=== PATIENT | male | born 1955 | race Caucasian/White ===

== ENCOUNTER → 2016-11-12 | Outpatient (CLI) | payer BC ==
[~2016-11-12] MED LIST: ACET-1256 PO; ASPI81TA28 PO; COLE1TAB PO; DOXA1TAB88 PO; EPP3/2 IM; GADAVIST IV PRN; LISI1TAB3 PO; LISI5TAB3 PO; METO-217 PO; METO50TA7 PO; PANT40TA PO
--- NOTE | 2016-11-12 09:55 | DIAGNOSTIC IMAGING REPORT ---
ABDOMINAL MRI WITH AND WITHOUT INTRAVENOUS CONTRAST HISTORY: Follow-up PANCREATIC CYST TECHNIQUE: Multiplanar multisequence MRI of the abdomen was performed both before and after the intravenous administration of contrast. COMPARISON STUDY: Abdominal MRI 11/27/2015 and 06/01/2015. Abdominal ultrasound 04/04/2015. FINDINGS: There are a few scattered T2 hyperintense nonenhancing lesions within the liver with the largest measuring 8 mm. These are consistent with cysts. The gallbladder is surgically absent. The spleen, kidneys, and adrenal glands are unremarkable. There is no abdominal lymphadenopathy. The main pancreatic duct appears be normal in course and caliber. There are no enhancing pancreatic lesions. There are multiple cystic foci seen within the pancreatic head and neck. The largest cystic structure may be multiloculated and measures up to 1.5 cm. This is best seen on coronal Fiesta sequence image 14 of 32. This appears to be stable when measured in the craniocaudal dimension on this study and was likely under estimated on the prior study. There is also a stable 6 mm solitary cystic focus within the pancreatic neck which may connect to the main pancreatic duct. This is best seen on image 19 of 28 of the T2 sequences. There is also a 7 mm cystic focus at the uncinate process of the pancreas. There are few small cystic foci at the tail the pancreas with the largest measuring 4 mm. These also remain unchanged. IMPRESSION: Multiple cystic foci seen within the head and neck of the pancreas. A few of these may connect to the main pancreatic duct. 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 However, the dominant lesion demonstrates a multiloculated appearance and could also represent a serous cystadenoma. Endoscopic ultrasound or continued follow-up is recommended to ensure stability. These lesions are difficult to fully characterize due to their small size. No definite enhancing pancreatic masses. Electronically signed by: Connor Cherry M.D. 11/12/2016 9:53 AM Dictated Date/Time: 11/12/2016 9:38 AM
== END | disposition home or self-care (01) ==
LOC: C.MRIBC 08:29
PROVIDERS: ATTEND Internal Medicine Gastroenterology
DX: K86.2 Cyst of pancreas (principal)

== ENCOUNTER 2016-12-27 09:49 | Day surgery (SDC) | payer BC ==
[2016-12-04 14:06] VITALS: BMI 22.0
[~2016-12-27] VITALS: Ht 175.3 cm; Wt 67.3 kg
[~2016-12-27 09:49] MED LIST changes: -GADAVIST IV PRN; +LACTATED RINGER'S 1000ML 1,000 ML IV SCH; -LISI5TAB3 PO; -METO50TA7 PO; -PANT40TA PO
[2016-12-27] MEDS ORDERED: PANT40TA PO (10:21)
[2016-12-27 10:26] VITALS: BP 145/82; PULSE 75; TEMP 36.9; O2SAT 98; Ht 175.3 cm; Wt 67.3 kg
[2016-12-27] MEDS ORDERED: SODIUM CHLORIDE 0.9% 500ML 500 ML IV ONE (10:59)
[2016-12-27] MEDS ORDERED: MIDAZOLAM HCL 1 MG/ML 2ML VIAL ONE (11:05)
[2016-12-27] MEDS ORDERED: ONDANSETRON INJ 2 MG/ML 2 ML VIAL ONE (11:05)
[2016-12-27] MEDS ORDERED: LIDOCAINE HCL 2% 2 ML VIAL (20MG/ML) ONE (11:05)
[2016-12-27] MEDS ORDERED: DEXAMETHASONE SOD INJ 4 MG/ML VIAL ONE (11:05)
[2016-12-27] MEDS ORDERED: PROPOFOL IV EMULSION 10 MG/ML 20 ML VIAL IV ONE (11:05)
[2016-12-27] MEDS ORDERED: FENTANYL CITRATE INJ 50 MCG/1 ML 2 ML VIAL ONE (11:05)
[2016-12-27] MEDS ORDERED: ROCURONIUM BROMIDE 10 MG/ML 5 ML VIAL ONE (11:05)
--- NOTE | 2016-12-27 11:26 | Endo History and Physical ---
History & Physical Date of Service: December 27, 2016. Chief Complaint: Referring Physician: History of Present Illness pancreatic cyst- enlarging head/neck of panc Past Medical History Male Genitourinary Prob., Hypertension, Other Past Surgical History Hx Cardiac Surgery: Yes (HEART CATH) Hx Abdominal Surgery: Yes (LAP [facility]) Hx Post-Op Nausea and Vomiting: No Hx Cancer Surgery: No Hx Thoracic Surgery: No Hx Orthopedic: No Hx Urinary Tract Surgery: No Social History Smoking Status: Never Smoker Hx Substance Use: No Hx Alcohol Use: Yes (RARELY) Allergies Coded Allergies: Bee Venom (Verified Allergy, Severe, SWELLING OF THROAT, 12/27/16) NO KNOWN DRUG ALLERGIES (Verified Allergy, Mild, NONE, 12/27/16) Current Medications Reported Home Medications Medications Dose Route/Sig Max Daily Dose Days Date Category Dose Instructions Protonix (Pantoprazole Sodium) 40 Mg Tab 40 Mg PO DAILY 12/27/16 Reported Colestid (Colestipol Hcl) 1 Gm Tab 1 Gm PO BID PRN 12/04/16 Reported Tylenol (Acetaminophen) 500 Mg Tab 500 Mg PO Q6H PRN 12/04/16 Reported Epipen (Epinephrine) 0.3 Mg/0.3 Ml Inj 0.3 Mg IM UD 12/04/16 Reported Toprol Xl (Metoprolol Succinate) 50 Mg Tabcr 50 Mg PO QPM 12/04/16 Reported Zestril (Lisinopril) 30 Mg Tab 30 Mg PO QAM 12/04/16 Reported Doxazosin Mesylate 1 Mg Tab 2 Mg PO DAILY PRN 04/14/15 Reported RARELY TAKES Aspirin Ec (Aspirin) 81 Mg Tab 81 Mg PO QAM 04/14/15 Reported Vital Signs Weight (Kilograms): 67.27 Height (Feet): 5 Height (Inches): 9 Date Time Temp Pulse Resp B/P Pulse Ox O2 Delivery O2 Flow Rate FiO2 12/27/16 10:26 36.9 75 20 145/82 98 Room Air Physical Exam AAO x3 Nl s1s2 Lungs CTA Abd soft NT ND + BS - CCE Assessment and Plan EUS possible FNA natali
[2016-12-27] MEDS ORDERED: FENTANYL CITRATE INJ 50 MCG/1 ML 2 ML VIAL IV PRN (11:45)
[2016-12-27] MEDS ORDERED: ONDANSETRON INJ 2 MG/ML 2 ML VIAL IV PRN (11:45)
[2016-12-27] MEDS ORDERED: ATROPINE SULFATE 0.1 MG/ML 5ML SYR IV PRN (11:45)
[2016-12-27] MEDS ORDERED: EpHEDrine SULFATE INJ 50 MG/ML AMP ONE (12:04)
[2016-12-27] MEDS ORDERED: CIPROFLOXACIN 400MG / 200ML D5W ONE (12:43)
[2016-12-27] MEDS ORDERED: NEOSTIGMINE METHYLSULFATE 5 MG/5 ML SYR ONE (13:21)
[2016-12-27] MEDS ORDERED: GLYCOPYRROLATE INJ 0.2 MG/ML VIAL ONE (13:21)
--- NOTE | 2016-12-27 13:21 | Discharge Instructions ---
Endoscopy Patient Instructions Date / Procedure(s) Performed December 27, 2016. Allergy Information Coded Allergies: Bee Venom (Verified Allergy, Severe, SWELLING OF THROAT, 12/27/16) NO KNOWN DRUG ALLERGIES (Verified Allergy, Mild, NONE, 12/27/16) Discharge Date / Findings December 27, 2016. EUS with FNA for cyst in pancreatic neck region received Cipro 400mg IV Medication Instructions Restart Stopped Medication(s): Reported Home Medications Medications Dose Route/Sig Max Daily Dose Days Date Category Dose Instructions Protonix (Pantoprazole Sodium) 40 Mg Tab 40 Mg PO DAILY 12/27/16 Reported Colestid (Colestipol Hcl) 1 Gm Tab 1 Gm PO BID PRN 12/04/16 Reported Tylenol (Acetaminophen) 500 Mg Tab 500 Mg PO Q6H PRN 12/04/16 Reported Epipen (Epinephrine) 0.3 Mg/0.3 Ml Inj 0.3 Mg IM UD 12/04/16 Reported Toprol Xl (Metoprolol Succinate) 50 Mg Tabcr 50 Mg PO QPM 12/04/16 Reported Zestril (Lisinopril) 30 Mg Tab 30 Mg PO QAM 12/04/16 Reported Doxazosin Mesylate 1 Mg Tab 2 Mg PO DAILY PRN 04/14/15 Reported RARELY TAKES Aspirin Ec (Aspirin) 81 Mg Tab 81 Mg PO QAM 04/14/15 Reported Cipro 500mg twice daily x 5 days Reported Home Medications Medications Dose Route/Sig Max Daily Dose Days Date Category Dose Instructions Protonix (Pantoprazole Sodium) 40 Mg Tab 40 Mg PO DAILY 12/27/16 Reported Colestid (Colestipol Hcl) 1 Gm Tab 1 Gm PO BID PRN 12/04/16 Reported Tylenol (Acetaminophen) 500 Mg Tab 500 Mg PO Q6H PRN 12/04/16 Reported Epipen (Epinephrine) 0.3 Mg/0.3 Ml Inj 0.3 Mg IM UD 12/04/16 Reported Toprol Xl (Metoprolol Succinate) 50 Mg Tabcr 50 Mg PO QPM 12/04/16 Reported Zestril (Lisinopril) 30 Mg Tab 30 Mg PO QAM 12/04/16 Reported Doxazosin Mesylate 1 Mg Tab 2 Mg PO DAILY PRN 04/14/15 Reported RARELY TAKES Aspirin Ec (Aspirin) 81 Mg Tab 81 Mg PO QAM 04/14/15 Reported Cipro 500mg BID x 5 days Provider Instructions Activity Restrictions - No exercising or heavy lifting for 24 hours. - Do not drink alcohol the day of the procedure. - Do not drive a car or operate machinery until the day after the procedure. - Do not make any important decisions or sign important papers in 24 hours after the procedure. Following Day: - Return to full activity which may include returning to work/school. Diet Start your diet with liquids and light foods (jello, soup, juice, toast). Then eat your usual diet if not nauseated. Treatment For Common After Affects For mild abdominal pain, bloating, or excessive gas: - Rest - Eat lightly - Lie on right side Follow-Up Information Follow-up with as scheduled Anesthesia Information What You Should Know You have had a procedure that required some medicine to reduce anxiety and discomfort. This treatment is called moderate sedation. After receiving the treatment, you may be sleepy, but you will be able to breathe on your own. The effects of the treatment may last for several hours. Follow these instructions along with Activity/Diet recommendations noted above: * Do NOT do anything where dizziness or clumsiness would be dangerous. * Rest quietly at home today, then you can be up and about tomorrow. * Have a responsible person stay with you the rest of today. * You may have had an I.V. today. If so, you may take the dressing off later today. Recommendations Call your doctor if: * Trouble breathing * Continuous vomiting for more than 24 hours * Temperature above 101 degrees * Severe abdominal pain or bloating * Pain not relieved by pain medicine ordered * There is increased drainage or redness from any incision * A large amount of rectal bleeding greater than 2-3 tablespoons. (If you had a polyp/s removed or have hemorrhoids, a small amount of blood - from the rectum is to be expected.) * You have any unanswered questions or concerns. IN THE EVENT OF A SERIOUS EMERGENCY, GO TO THE NEAREST EMERGENCY ROOM Your discharge instructions were prepared by provider Miles Hart. Patient Instructions Signature Page Connor Tomas Patient (or Guardian) Signature/Date: I have read and understand the instructions given to me by my caregivers. Caregiver/RN/Doctor Signature/Date: The above-named patient and/or guardian has received patient instructions on this date. + Original Patient Signature Page (only) stays with chart. Please make copy for patient.
--- NOTE | 2016-12-27 13:48 | GI REPORT ---
Procedure Date: 12/27/2016 11:33 AM Procedure: Upper EUS Indications: Pancreatic cyst on MRI Medicines: General Anesthesia, Cipro 400 mg IV Complications: No immediate complications. Estimated blood loss: Minimal. Estimated Blood Loss: Estimated blood loss was minimal. Procedure: Pre-Anesthesia Assessment: - Prior to the procedure, a History and Physical was performed, and patient medications and allergies were reviewed. The patient's tolerance of previous anesthesia was also reviewed. The risks and benefits of the procedure and the sedation options and risks were discussed with the patient. All questions were answered, and informed consent was obtained. Prior Anticoagulants: The patient has taken no previous anticoagulant or antiplatelet agents. ASA Grade Assessment: II - A patient with mild systemic disease. After reviewing the risks and benefits, the patient was deemed in satisfactory condition to undergo the procedure. After obtaining informed consent, the endoscope was passed under direct vision. Throughout the procedure, the patient's blood pressure, pulse, and oxygen saturations were monitored continuously. The Endosonoscope was introduced through the mouth, and advanced to the second part of duodenum. The Endosonoscope was introduced through the mouth, and advanced to the second part of duodenum. The upper EUS was accomplished without difficulty. The patient tolerated the procedure well. Findings: Endoscopic Finding : The examined esophagus was normal. The entire examined stomach was normal. The ampulla and examined duodenum were normal. Endosonographic Finding : The esophagus, stomach, duodenum, esophagus, stomach and duodenum and adjacent structures were visualized endosonographically. There was no sign of significant endosonographic abnormality in the esophagus. No pathologic lymphadenopathy was identified. Endosonographic images of the stomach were unremarkable. No pathologic lymphadenopathy and no masses were identified. There was no sign of significant endosonographic abnormality in the examined duodenum. No pathologic lymphadenopathy was identified. There was no sign of significant endosonographic abnormality in the ampulla. No pathologic lymphadenopathy was identified. There was no sign of significant endosonographic abnormality in the liver. Homogeneous parenchyma was identified. There was no sign of significant endosonographic abnormality in the common bile duct. The maximum diameter of the duct was 5 mm. No masses were identified. A hypoechoic lesion suggestive of a cyst was identified in the pancreatic neck. It is not in obvious communication with the pancreatic duct. The lesion measured 11 mm by 19 mm in maximal cross-sectional diameter. There were a few compartments without septae. The outer wall of the lesion was not seen. There was no internal debris within the fluid-filled cavity. Diagnostic needle aspiration for fluid was performed. Color Doppler imaging was utilized prior to needle puncture to confirm a lack of significant vascular structures within the needle path. Two passes were made with the 22 gauge needle using a transduodenal approach. No stylet was used. The amount of fluid collected was 0.5 mL. The fluid was serous and bilious. Sample(s) were sent for amylase concentration, cytology and CEA. Verification of patient identification for the specimen was done by the physician and cdl service technician using the patient's name and medical record number. A hypoechoic lesion suggestive of a cyst was identified in the pancreatic body. It is not in obvious communication with the pancreatic duct. The lesion measured 8 mm in maximal cross-sectional diameter. There was a single compartment without septae. The outer wall of the lesion was not seen. There was no internal debris within the fluid-filled cavity. No lymphadenopathy seen. Impression: - Normal esophagus. - Normal stomach. - Normal ampulla and examined duodenum. - There was no sign of significant pathology in the esophagus. - Endosonographic images of the stomach were unremarkable. - There was no sign of significant pathology in the examined duodenum. - There was no sign of significant pathology in the ampulla. - There was no evidence of significant pathology in the liver. - There was no sign of significant pathology in the common bile duct. - A cystic lesion was seen in the pancreatic neck. Fine needle aspiration for fluid performed. - A cystic lesion was seen in the pancreatic body. Recommendation: - Discharge patient to home (ambulatory). - Advance diet as tolerated. - Cipro (ciprofloxacin) 500 mg PO BID for 5 days. - Return to GI clinic as previously scheduled. MD Miles Santiago MD 12/27/2016 1:48:09 PM This report has been signed electronically. Note Initiated On: 12/27/2016 11:33 AM I attest to the content of the Intraoperative Record and orders documented therein, exceptions below
[2016-12-27 14:00] VITALS: BP 156/76; PULSE 62; TEMP 36.7; O2SAT 98
[2016-12-27 14:30] VITALS: BP 134/71; PULSE 67; TEMP 36.6; O2SAT 96
--- NOTE | 2016-12-27 14:47 | Anesthesiology Progress Note ---
Anesthesia Post Op Note Date & Time December 27, 2016 at 14:47 Vital Signs Pain Intensity: 0 Vital Signs Past 12 Hours Date Time Temp Pulse Resp B/P Pulse Ox O2 Delivery O2 Flow Rate FiO2 12/27/16 14:00 36.7 62 16 156/76 98 Room Air 0 12/27/16 13:55 72 20 153/75 98 Room Air 12/27/16 13:45 63 17 157/77 99 Room Air 12/27/16 13:35 61 19 156/81 100 Mask 10 12/27/16 13:25 64 17 149/76 100 Mask 10 12/27/16 13:15 36.0 66 14 144/77 100 Mask 10 12/27/16 10:26 36.9 75 20 145/82 98 Room Air Notes Mental Status: alert / awake / arousable, participated in evaluation Pt Amnestic to Procedure: Yes Nausea / Vomiting: adequately controlled Pain: adequately controlled Airway Patency, RR, SpO2: stable & adequate BP & HR: stable & adequate Hydration State: stable & adequate Anesthetic Complications: no major complications apparent
[2016-12-27 15:00] VITALS: BP 138/74; PULSE 67; TEMP 36.7; O2SAT 96
== END 2016-12-27 15:05 | disposition home or self-care (01) ==
LOC: C.ACU 09:49
PROVIDERS: ATTEND Internal Medicine Gastroenterology
DX: K86.2 Cyst of pancreas (principal); I10 Essential (primary) hypertension; Z90.49 Acquired absence of other specified parts of digestive tract; Z79.82 Long term (current) use of aspirin

== ENCOUNTER → 2017-10-30 | Outpatient (CLI) | payer OTHER ==
[~2017-10-30] MED LIST changes: -LACTATED RINGER'S 1000ML 1,000 ML IV SCH; +PANT40TA PO
== END | disposition home or self-care (01) ==
LOC: C.PATHSPEC 18:45
PROVIDERS: ATTEND Plastic Surgery
DX: D36.7 Benign neoplasm of other specified sites (principal); L90.5 Scar conditions and fibrosis of skin

== ENCOUNTER → 2017-12-17 | Outpatient (CLI) | payer OTHER ==
[2017-12-17 15:10] LABS: BLOOD UREA NITROGEN 29 mg/dl (7-18)
== END | disposition home or self-care (01) ==
LOC: C.LAB 13:30
PROVIDERS: ATTEND Internal Medicine Gastroenterology
DX: D13.6 Benign neoplasm of pancreas (principal)

== ENCOUNTER → 2017-12-18 | Outpatient (CLI) | payer OTHER ==
--- NOTE | 2017-12-18 10:25 | DIAGNOSTIC IMAGING REPORT ---
ABDOMINAL MRI WITH AND WITHOUT INTRAVENOUS CONTRAST HISTORY: Follow-up PANCREATIC CYST TECHNIQUE: Multiplanar multisequence MRI of the abdomen was performed both before and after the intravenous administration of contrast. COMPARISON STUDY: Abdominal MRI 11/12/2016, 11/27/2015 and 06/01/2015. FINDINGS: There are a few scattered T2 hyperintense nonenhancing lesions within the liver with the largest measuring 8 mm. These are consistent with cysts. The gallbladder is surgically absent. The spleen, kidneys, and adrenal glands are unremarkable. There is no abdominal lymphadenopathy. The main pancreatic duct appears be normal in course and caliber. There are no enhancing pancreatic lesions. There are multiple cystic foci seen within the pancreatic head and neck. The largest cystic structure may be multiloculated and measures up to 1.5 cm. There is also a stable 6 mm solitary cystic focus within the pancreatic neck which may connect to the main pancreatic duct. There is also a 7 mm cystic focus at the uncinate process of the pancreas. There are few small cystic foci at the tail the pancreas with the largest measuring 4 mm. These cystic lesions are not significantly changed. IMPRESSION: Multiple cystic foci seen within the the pancreas most pronounced at the head/neck. These are not significantly changed compared to the prior study. A few of these may connect to the main pancreatic duct. 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 However, the dominant lesion demonstrates a multiloculated appearance and could also represent a serous cystadenoma. Endoscopic ultrasound or continued follow-up is recommended to ensure stability. These lesions are difficult to fully characterize due to their small size. No definite enhancing pancreatic masses. Electronically signed by: Connor Cherry M.D. 12/18/2017 10:23 AM Dictated Date/Time: 12/18/2017 10:19 AM
== END | disposition home or self-care (01) ==
LOC: C.MRI 08:27
PROVIDERS: ATTEND Internal Medicine Gastroenterology
DX: D13.6 Benign neoplasm of pancreas (principal); K86.2 Cyst of pancreas

== ENCOUNTER 2023-11-21 13:13 | Inpatient (IN) ==
[2023-11-21 13:55] LABS: Basophils # (auto) 0.06 K/uL (0.00-0.20); Basophils % (auto) 0.7 %; Eosinophils % (auto) 1.2 %; Hematocrit (blood only) 43.9 % (42.0-52.0); Hemoglobin 14.7 g/dl (14.0-18.0); Immature Granulocytes # (auto) 0.02 K/uL (0.01-0.20); Immature Granulocytes % (auto) 0.2 %; Lymphocytes # (auto) 1.47 K/uL (1.20-3.40); Lymphocytes % (auto) 17.4 %; Mean Corpuscular Hemoglobin 31.3 pg (25.0-34.0); Mean Corpuscular Hgb Conc 33.5 g/dL (32.0-36.0); Mean Corpuscular Volume 93.4 fL (80.0-100.0); Mean Platelet Volume 8.9 fL (9.4-12.4); Monocytes % (auto) 10.7 %; Neutrophils # (auto) 5.88 K/uL (1.40-6.50); Neutrophils % (auto) 69.8 %; Platelet Count 306 K/uL (130-400); RDW Coefficient of Variation 12.5 % (11.5-14.5); RDW Standard Deviation 43.2 fL (36.4-46.3); White Blood Count 8.43 K/ul (4.8-10.8)
[2023-11-21 14:18] LABS: Albumin Globulin Ratio 1.7 (0.9-2); Albumin Level 4.7 gm/dl (3.4-5.0); BUN Creatinine Ratio 18.6 (10-20); Bilirubin,Total 0.5 mg/dl (0.2-1.0); Calcium 9.9 mg/dl (8.6-10.3); Creatinine Clr Calc Pharmacy 61.6 ml/min; Est GFR (African American) 86.5 ml/min; Est GFR (Non-African American) 74.6 ml/min; Globulin 2.7 gm/dl (2.5-4.0); Potassium 3.9 mmol/L (3.5-5.1); Total Protein 7.4 gm/dl (6.0-8.3)
--- NOTE | 2023-11-21 14:22 | XRay Report ---
XR chest 1V portable CLINICAL HISTORY: Chest pain, nonspecific TECHNIQUE: Single frontal radiograph of the chest was obtained. Comparison: Comparison is made to chest radiograph 08/06/2022 FINDINGS: No lines and tubes are seen. The cardiomediastinal silhouette is normal. The lungs are clear. No evid ence of pleural effusion or pneumothorax. IMPRESSION: No acute chest disease. ACT 112: Negative or not required by law. Electronically signed by: Michael De León M.D. 11/21/2023 2:20 PM
[2023-11-21 14:29] LABS: Troponin I High Sensitivity 149.6 pg/ml (0-20)
[2023-11-21 14:31] LABS: Partial Thromboplastin Ratio 0.9; Partial Thromboplastin Time 25 Seconds (21-31); Prothrombin Time 10.8 Seconds (9.0-12.0)
[2023-11-21] MEDS: ASPIRIN 81 MG CHEW PO STA (14:57)
--- NOTE | 2023-11-21 15:09 | History & Physical Report ---
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 Hilario Berry Patient had a 75% mid circumflex stenosis; s/p 1 stent Percent mid LAD, and severe disease in the small apical LAD Trend troponin q6h Echocardiogram ordered, pending Aspirin 81 mg daily Atorvastatin 80 mg daily Brilinta 90 mg BID Metoprolol succinate 50mg QAM --> metoprolol tartrate 25 mg BID Acetaminophen as needed for pain Nitroglycerin SL as needed for chest pain A.m. CBC, BMP, A1c, fasting lipid panel, mag (2) High blood pressure: Plan: Lisinopril 30mg QPM --> QAM Plan Disposition: Admit to PCU telemetry Full code AHA diet VTE PPx: SCDs History of Present Illness Chief Complaint: Chest pain Primary Care Provider: Daina Medina MD Connor is a 67-year-old male with PMH of gastric ulcers, chronic cholecystitis, HTN, chronic venous insufficiency, and BPH. He presented for burning, substernal chest pain that first began while doing yard work on Thursday 11/16. Heart alert in the ED; taken to the cardiac car barn laborer with Dr. Berry. Patient reports that the substernal chest pain waxes and wanes, and initially thought that it was acid reflux. He has been taking antacids at home, but they have not been working. Patient also thought that he potentially strained his muscles when doing yard work on Friday history of chest pain with exertion. Patient reports that he has normally been very healthy, and is able to walk extensive distances without any pain he does report that he was restless in the evening of 11/19, and that the pain did keep him up. No radiation to the back or down the arms. No history of MS, CVA, T2DM, bleeding, or allergies to sedation. The pain is not worse with eating, he does endorse that it is slightly worse with movement. Patient is hypertensive at 158/86 at time of admission; vitals otherwise stable. ED course: Aspirin 324 mg ROS: following stent Patient denies fever in the last week, chills, night sweats, dizziness/lightheadedness, headache, changes in vision, chest pain at present, left shoulder pain, chest palpitations, cough, SOB, abdominal pain, N/V/D, change in urinary/bowel habits, or numbness or tingling in the arms or legs. Allergies Allergy/AdvReac Type Severity Reaction Status Date / Time bee venom protein (honey bee) Allergy Severe SWELLING Verified 11/21/23 15:25 OF THROAT Home Medications Medication Instructions Recorded Confirmed Type acetaminophen 500 mg tablet 500 mg PO Q6H PRN Pain 09/18/23 11/21/23 History (Tylenol Extra Strength) aspirin 81 mg tablet,delayed 81 mg PO DAILY 09/18/23 11/21/23 History release colestipol 1 gram tablet 1 g PO HS 09/18/23 11/21/23 History doxazosin 2 mg tablet 2 mg PO DAILY PRN BPH 09/18/23 11/21/23 History epinephrine 0.3 mg/0.3 mL 0.3 mg IM Q4H PRN Severe allergies 09/18/23 11/21/23 History injection, auto-injector (EpiPen) lisinopril 30 mg tablet 30 mg PO QPM 09/18/23 11/21/23 History metoprolol succinate 50 mg 50 mg PO QPM 09/18/23 11/21/23 History tablet,extended release 24 hr colestipol 1 gram tablet 1 g PO DAILY PRN Diarrhea 11/21/23 11/21/23 History Past Med/Surg History Medical History High blood pressure Skin cancer Social History Smoking Status: Former smoker Hx Alcohol Use: Yes Alcohol type: wine Hx Substance Use: No Preferred 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 Beliefs That Will Affect Care: None Current Living Situation: Spouse Other Information That Helps Us Care for You: No Feels Safe at Home: Yes Safety Concerns: Feels Safe At This Time Assistive Devices: Glasses Review of Systems Review of Systems: See HPI above Physical Exam Physical Exam: General: no acute distress; pleasant affect; non-toxic appearing; cooperative; 98% on RA HEENT: normocephalic, atraumatic; PERRLA; moist mucus membrane; vision and hearing grossly intact Neck: supple; no lymphadenopathy; trachea midline Skin: warm, dry without signs of tenting; no cyanosis; no rashes, bruising, lesions, or erythema noted CV: chest wall NTP; chest pain is not reproducible on palpation; RRR; S1/S2 normal; no murmurs/rubs/gallops; pulses intact and symmetric at radial, DP, and PT Lungs: no acute respiratory distress; symmetrical chest wall expansion; clear breath sounds across all lung [place] w/o adventitious sounds; no wheezing ABD: Soft, NTP; BS present; no rebound/guarding; no distention MSK: no tics or fasciculations; no edema noted in the LEs b/l, nonerythematous Neuro: A&Ox3; normal mood and affect; fluent speech; no focal deficits; sensation grossly intact in the LEs b/l Results & Data Results & Data Vital Signs (Past 12 Hours) Vital Signs Temp Pulse Pulse Resp BP BP Pulse Ox 11/21/23 15:00 71 19 158/86 H 96 11/21/23 13:55 11/21/23 13:55 11/21/23 13:55 11/21/23 13:20 37 C 89 18 167/88 H 97 O2 Del Method 11/21/23 15:00 Room Air 11/21/23 13:55 Room Air 11/21/23 13:55 Room Air 11/21/23 13:55 Room Air 11/21/23 13:20 Room Air Laboratory Results Abnormal lab results 11/21/23 11/21/23 Range/Units 13:35 15:05 MPV 8.9 L (9.4-12.4) fL [place] # (Auto) 0.90 H (0.11-0.59) K/uL Glucose 173 H (70-99(Fasting)) mg/dl Troponin I High Sens 149.6 H* 303.9 H* D (0-20) pg/ml Diagnostic Findings Chest X-Ray 11/21/23 13:28 XR chest 1V portable CLINICAL HISTORY: Chest pain, nonspecific TECHNIQUE: Single frontal radiograph of the chest was obtained. Comparison: Comparison is made to chest radiograph 08/06/2022 FINDINGS: No lines and tubes are seen. The cardiomediastinal silhouette is normal. The lungs are clear. No evidence of pleural effusion or pneumothorax. IMPRESSION: No acute chest disease. ACT 112: Negative or not required by law. Electronically signed by: Michael De León M.D. 11/21/2023 2:20 PM Code Status & VTE Plan Code Status Full code (discussed with patient at bedside; = POA) VTE Prophylaxis Plan VTE Prophylaxis will be ordered: Yes Supervising Physician Co-Signing Physician Notes Patient seen and examined, chart reviewed, case discussed with Connor Lo and I agree with the assessment and plan as above except as otherwise noted Labs and images reviewed Connor is a 67-year-old male with a past medical history of stomach ulcers, BPH, chronic venous insufficiency who presented with acute onset of burning substernal pain, was hypertensive on arrival to the ER, and was activated as a heart alert while in the ER. Previously with exertional ches tpain, however had 3 days of constant burning chest pain waxing and waning but genearlly constant and worsened with exertion. 2/10 whlie in the ER. Patient's baseline left bundle branch block however acute ischemic changes were seen with new discordant elevations in V3 >5mm and T wave inversions. Heart alert was called due to worsened chest pain which had progressed to persistent, EKG changes, and elevated troponin. Patient was taken urgently to the Ammonium Sulfate Operator. He received an RCA stent, and will be continued on aspirin/atorvastatin/lisinopril/metoprolol/Brilinta. PG Care Time/CCT Total # of Minutes Spent Total Time Spent with Patient: Total time spent is greater than 50% in coordination of care (as documented) at patient's floor/unit and/or counseling patient: [place] [address] INT INP/OBS CARE 2/55MIN Patient Type New Medical Decision Making Moderate Complexity Diagnoses NSTEMI (non-ST elevated myocardial infarction) I21.4 High blood pressure I10
--- NOTE | 2023-11-21 15:10 | Emergency Department Note ---
Impression & Plan ST elevation (STEMI) myocardial infarction ED Provider Note CHIEF COMPLAINT: Chest pain HPI: This is a 67-year-old male presenting for chest pain. Patient first notes that he was working in his yard lifting heavy things and noticed some chest pressure across his anterior chest into the shoulders about 4 days ago. He notes that this was expected after him working. And then he went to a restaurant where he ate kebabs which he thought was causing him GERD about 2 days ago. For the past 2 days however he has had a burning sensation to his chest. He thought he may have had a small food bolus. Otherwise he notes that he has no worsening pain with exertion, or position. He notes he takes a baby aspirin and metoprolol daily. ROS: See above HPI for pertinent positives & negatives. A total of 10 systems reviewed and were otherwise negative. PHYSICAL EXAMINATION: General: resting comfortably in no acute distress Head: Normocephalic and atraumatic Eyes: Normal inspection, extraocular muscles intact Ear, nose, throat: Normal external exam Neck: Normal range of motion Respiratory: lungs clear to auscultation bilaterally Cardiovascular: Regular rate/rhythm, no murmur GI: soft, nontender, no guarding or rebound Extremities: nontender, moves all extremities Neuro: The patient awake and alert, appropriately conversive, no focal deficits, symmetric faces Skin: Warm, dry, and intact MEDICAL DECISION MAKING: This is a 67-year-old male presenting for chest pain. Patient had blood work and EKG ordered at triage. I was alerted by the charge nurse that patient had elevated troponin into the 150s. I immediately went to see the patient. Reviewed his EKG which did reveal some T wave versions of the high lateral and inferior leads. I discussed patient's history with his bag repairer, Dr. Howard who reviewed the EKG as well. Dr. Howard recommended patient be taken to the Storage Specialist due to the EKG findings. I immediately called a STEMI alert at this time at 1457. -Patient received 4 baby aspirin chewable. -Patient given heparin bolus -Patient taken to Storage Specialist for patient current chest pain, EKG changes and possible STEMI -ECG independently interpreted by me with normal sinus rhythm, rate of 76, normal axis, normal TX, left axis deviation, normal QTc, ST elevation greater than 5 mm in V3, ST depression in leads V5, V6, II, III and aVF with subtle elevations in leads I and aVL -Labs reviewed from leukocytosis or anemia. Troponin was initially elevated at 150s, no transaminitis or electrolyte disturbances. Repeat troponin over 300. Differential diagnosis: ACS, PE, dissection ER treatment provided: See below Diagnostics interpreted by me: ECG: See above Cardiac Monitoring: An order was placed for continuous cardiac monitoring. The monitor shows a rate of 67 with sinus rhythm. Laboratory studies: As stated above and show below. Imaging studies: See below. 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: No Beliefs That Will Affect Care: None Current Living Situation: Spouse Other Information That Helps Us Care for You: No Feels Safe at Home: Yes Safety Concerns: Feels Safe At This Time Assistive Devices: Glasses Allergies Allergies Allergy/AdvReac Type Severity Reaction Status Date / Time bee venom protein (honey bee) Allergy Severe SWELLING Verified 11/21/23 15:25 OF THROAT Home Meds Home Medications Medication Instructions Recorded Confirmed acetaminophen 500 mg tablet 500 mg PO Q6H PRN Pain 09/18/23 11/21/23 (Tylenol Extra Strength) aspirin 81 mg tablet,delayed 81 mg PO DAILY 09/18/23 11/21/23 release colestipol 1 gram tablet 1 g PO HS 09/18/23 11/21/23 doxazosin 2 mg tablet 2 mg PO DAILY PRN BPH 09/18/23 11/21/23 epinephrine 0.3 mg/0.3 mL 0.3 mg IM Q4H PRN Severe allergies 09/18/23 11/21/23 injection, auto-injector (EpiPen) lisinopril 30 mg tablet 30 mg PO QPM 09/18/23 11/21/23 metoprolol succinate 50 mg 50 mg PO QPM 09/18/23 11/21/23 tablet,extended release 24 hr colestipol 1 gram tablet 1 g PO DAILY PRN Diarrhea 11/21/23 11/21/23 Results & Data (ED) Vital Signs Vital Signs - 24 hr 11/21/23 13:20 11/21/23 13:55 11/21/23 13:55 Temperature 37 C Temperature Source Temporal Artery Scan Pulse Rate 89 Pulse Rate [Apical] Pulse Rate from SpO2 Sensor Respiratory Rate 18 Respiratory Effort / Characteristics Non-Labored Spontaneous Respiratory Depth Normal Respiratory Pattern Regular Blood Pressure 167/88 H Blood Pressure [Right Arm] Blood Pressure Mean 114 Blood Pressure Mean [Right Arm] Blood Pressure Position Lying Pulse Oximetry 97 Oxygen Delivery Method Room Air Room Air Room Air Sepsis Recent Fever Within 48 Hours No Sepsis New/Unexplained Change in Mental Status No Sepsis Action Taken by Nursing No Action Required 11/21/23 13:55 11/21/23 15:00 11/21/23 15:13 Temperature Temperature Source Pulse Rate 82 Pulse Rate [Apical] 71 Pulse Rate from SpO2 Sensor 73 Respiratory Rate 19 14 Respiratory Effort / Characteristics Non-Labored Spontaneous Respiratory Depth Normal Respiratory Pattern Blood Pressure Blood Pressure [Right Arm] 158/86 H Blood Pressure Mean Blood Pressure Mean [Right Arm] 110 Blood Pressure Position Pulse Oximetry 96 100 Oxygen Delivery Method Room Air Room Air Sepsis Recent Fever Within 48 Hours Sepsis New/Unexplained Change in Mental Status Sepsis Action Taken by Nursing 11/21/23 15:15 11/21/23 15:18 11/21/23 15:18 Temperature Temperature Source Pulse Rate 75 81 Pulse Rate [Apical] Pulse Rate from SpO2 Sensor 77 80 Respiratory Rate 19 22 Respiratory Effort / Characteristics Respiratory Depth Respiratory Pattern Blood Pressure 146/75 H Blood Pressure [Right Arm] Blood Pressure Mean 113 Blood Pressure Mean [Right Arm] Blood Pressure Position Pulse Oximetry 100 100 Oxygen Delivery Method Sepsis Recent Fever Within 48 Hours Sepsis New/Unexplained Change in Mental Status Sepsis Action Taken by Nursing 11/21/23 15:26 11/21/23 15:26 Temperature Temperature Source Pulse Rate 77 Pulse Rate [Apical] Pulse Rate from SpO2 Sensor Respiratory Rate 13 Respiratory Effort / Characteristics Respiratory Depth Respiratory Pattern Blood Pressure 162/78 H Blood Pressure [Right Arm] Blood Pressure Mean 126 Blood Pressure Mean [Right Arm] Blood Pressure Position Pulse Oximetry Oxygen Delivery Method Sepsis Recent Fever Within 48 Hours Sepsis New/Unexplained Change in Mental Status Sepsis Action Taken by Nursing Laboratory Data 11/21/23 13:35 11/21/23 13:35 Lab Results 11/21/23 11/21/23 11/21/23 Range/Units 13:35 15:05 16:04 WBC 8.43 (4.8-10.8) K/ul RBC 4.70 (4.70-6.10) M/uL Hgb 14.7 (14.0-18.0) g/dl Hct 43.9 (42.0-52.0) % MCV 93.4 (80.0-100.0) fL MCH 31.3 (25.0-34.0) pg MCHC 33.5 (32.0-36.0) g/dL RDW Std Deviation 43.2 (36.4-46.3) fL RDW Coeff of Lito 12.5 (11.5-14.5) % Plt Count 306 (130-400) K/uL MPV 8.9 L (9.4-12.4) fL Immature Gran % (Auto) 0.2 % Neut % (Auto) 69.8 % Lymph % (Auto) 17.4 % Winn % (Auto) 10.7 % Eos % (Auto) 1.2 % Baso % (Auto) 0.7 % Neut # (Auto) 5.88 (1.40-6.50) K/uL Lymph # (Auto) 1.47 (1.20-3.40) K/uL Winn # (Auto) 0.90 H (0.11-0.59) K/uL Eos # (Auto) 0.10 (0.00-0.50) K/uL Baso # (Auto) 0.06 (0.00-0.20) K/uL Immature Gran # (Auto) 0.02 (0.01-0.20) K/uL PT 10.8 (9.0-12.0) Seconds INR 1.0 (0.9-1.1) APTT 25 (21-31) Seconds PTT Ratio 0.9 Activ Coag Time Kaolin 261 H (94-140) SECONDS Sodium 138 (136-145) mmol/L Potassium 3.9 (3.5-5.1) mmol/L Chloride 104 (98-107) mmol/L Carbon Dioxide 26 (21-32) mmol/L Anion Gap 8 (3-11) BUN 19 (6-23) mg/dl Creatinine 1.02 (0.6-1.4) mg/dl Est Cr Clr Drug Dosing 61.6 ml/min Est GFR ( Amer) 86.5 ml/min Est GFR (Non-Af Amer) 74.6 ml/min BUN/Creatinine Ratio 18.6 (10-20) Glucose 173 H (70-99(Fasting)) mg/dl Calcium 9.9 (8.6-10.3) mg/dl Total Bilirubin 0.5 (0.2-1.0) mg/dl AST 19 (13-39) U/L ALT 16 (7-52) U/L Alkaline Phosphatase 78 (34-104) U/L Troponin I High Sens 149.6 H* 303.9 H* D (0-20) pg/ml Total Protein 7.4 (6.0-8.3) gm/dl Albumin 4.7 (3.4-5.0) gm/dl Globulin 2.7 (2.5-4.0) gm/dl Albumin/Globulin Ratio 1.7 (0.9-2) Administered Medications Discontinued Medications Aspirin (Aspirin 81 Mg Chew) 324 mg PO NOW STA Stop: 11/21/23 14:49 Last Admin: 11/21/23 14:57 Dose: 324 mg Documented By: PASQUALE Fentanyl Citrate (Fentanyl Citrate Pf 100 Mcg/2 Ml Vial) Confirm Administered Dose 100 mcg .ROUTE .STK-MED ONE Stop: 11/21/23 15:03 Last Increment: 11/21/23 16:09 Dose: 50 mcg Documented By: PETR Heparin Sodium (Porcine) (Heparin (Porcine) 1000 Unit/Ml 10 Ml (Storage Specialist Use Only)) Confirm Administered Dose 10,000 units .ROUTE .STK-MED ONE Stop: 11/21/23 15:02 Last Admin: 11/21/23 16:08 Dose: 5,000 units Documented By: PETR Heparin Sodium (Porcine) (Heparin Sod (Porcine) 1000 Unit/Ml) Confirm Administered Dose 1,000 units .ROUTE .STK-MED ONE Stop: 11/21/23 15:13 Last Admin: 11/21/23 15:15 Dose: 5,000 units Documented By: PEACE Co-signed By: YOSELIN Heparin Sodium/Sodium Chloride (Heparin In Nss Infusion 1000 Unit/500 Ml (2 U/Ml) Bag) Confirm Administered Dose 3,000 units IV .STK-MED ONE Stop: 11/21/23 15:03 Last Admin: 11/21/23 16:09 Dose: 3,000 units Documented By: PETR Ioversol (Optiray 350) Confirm Administered Dose 1 ml .ROUTE .STK-MED ONE Stop: 11/21/23 15:03 Last Admin: 11/21/23 16:09 Dose: 60 ml Documented By: VEGETABLE CUTTER Lidocaine HCl (Lidocaine 1% Local 20 Ml Vial) Confirm Administered Dose 1 ml .ROUTE .STK-MED ONE Stop: 11/21/23 15:05 Last Admin: 11/21/23 16:10 Dose: 1 ml Documented By: VEGETABLE CUTTER Midazolam HCl (Midazolam Hcl 1 Mg/Ml 2ml Vial) Confirm Administered Dose 2 mg .ROUTE .STK-MED ONE Stop: 11/21/23 15:02 Last Admin: 11/21/23 16:08 Dose: 2 mg Documented By: VEGETABLE CUTTER Nicardipine HCl (Nicardipine Hcl Inj 2.5 Mg/Ml 10 Ml Amp) Confirm Administered Dose 25 mg .ROUTE .STK-MED ONE Stop: 11/21/23 15:02 Last Admin: 11/21/23 16:08 Dose: 25 mg Documented By: VEGETABLE CUTTER Nitroglycerin/Dextrose (Nitroglycerin/D5w 100mcg/Ml 20ml Syr) Confirm Administered Dose 2,000 mcg .ROUTE .STK-MED ONE Stop: 11/21/23 15:03 Last Admin: 11/21/23 16:10 Dose: 2,000 mcg Documented By: VEGETABLE CUTTER Ticagrelor (Ticagrelor 90 Mg Tab) Confirm Administered Dose 180 mg .ROUTE .STK- MED ONE Stop: 11/21/23 16:02 Last Admin: 11/21/23 16:10 Dose: 180 mg Documented By: VEGETABLE CUTTER Imaging Data Radiologist's Impression: Chest X-Ray 11/21/23 13:28 XR chest 1V portable CLINICAL HISTORY: Chest pain, nonspecific TECHNIQUE: Single frontal radiograph of the chest was obtained. Comparison: Comparison is made to chest radiograph 08/06/2022 FINDINGS: No lines and tubes are seen. The cardiomediastinal silhouette is normal. The lungs are clear. No evidence of pleural effusion or pneumothorax. IMPRESSION: No acute chest disease. ACT 112: Negative or not required by law. Electronically signed by: Michael De León M.D. 11/21/2023 2:20 PM Discharge Plan Visit Data Chief Complaint: Chest Pain Stated Complaint: REF BY CARDIO, CHEST PAIN & BURNING, HYPERTENSION ED Provider: Chappell,Niketu J. Discharge Problem: ST elevation (STEMI) myocardial infarction Patient Disposition: Admitted As Inpatient Discharge Instructions Interventions: ED Discharge Assessment Last Done: 11/21/23 15:33
[2023-11-21] MEDS: HEPARIN SOD (PORCINE) 1000 UNIT/ML ONE (15:15)
--- NOTE | 2023-11-21 15:36 | Pre Anesthesia Assessment ---
Date of Service November 21, 2023 Pre Sedation Assessment Vital Signs Temp Pulse Pulse Resp BP BP Pulse Ox 11/21/23 15:26 77 13 11/21/23 15:26 162/78 H 11/21/23 15:18 146/75 H 11/21/23 15:18 81 22 100 11/21/23 15:15 75 19 100 11/21/23 15:13 82 14 100 11/21/23 15:00 71 19 158/86 H 96 11/21/23 13:55 11/21/23 13:55 11/21/23 13:55 11/21/23 13:20 98.6 F 89 18 167/88 H 97 O2 Del Method 11/21/23 15:26 11/21/23 15:26 11/21/23 15:18 11/21/23 15:18 11/21/23 15:15 11/21/23 15:13 11/21/23 15:00 Room Air 11/21/23 13:55 Room Air 11/21/23 13:55 Room Air 11/21/23 13:55 Room Air 11/21/23 13:20 Room Air Cardiovascular + regular rate Respiratory + respiratory effort normal Pre-Sedation Airway Assessment Smoking Status: Former smoker Hx Sleep Apnea: No Hx Difficult Intubation: No Short, Thick Neck: No Thyromental Distance: < 3.5 Finger Breadths Mallampati Class: III ASA: ASA3 Procedure Planning Contraindications for Sedation: none Current Medications Reviewed: Yes Notes The planned sedation has been discussed with the patient. Informed Consent was obtained. I have identified the patient, determined the appropriateness of sedation and have assessed the patient immediately prior to the procedure. All medicine(s) and interventions are by my order.
--- NOTE | 2023-11-21 15:40 | Cardiology Consultation ---
Date of Consultation November 21, 2023 Assessment & Plan (1) Chest pain: Plan Presentation concerning for acute CA and recommend proceeding with urgent cardiac catheterization and possible primary PCI. No apparent contraindications to procedure. Discussed risks, benefits, alternatives of procedure with patient and they are willing to proceed. Given aspirin, IV heparin in ED. Further recommendations pending findings of coronary angiography. History of Present Illness History of Present Illness 67-year-old male here with acute chest pain and ECG concerning for acute CA. Patient seen emergently in the ED after heart alert activated after abnormal ECG with rising HS TropI Past cardiac history remarkable for chronic left bundle branch block, hypertension. Carries diagnosis of CAD. Per patient previously underwent cardiac catheterization years ago at [facility] but did not require stents. Report intermittent burning pain across his chest for the last 2 to 3 days. Has had similar symptoms in the past after strenuous exertion (like walking and cold weather) but always went away quickly. Current associated with diaphoresis. Pain now 2 out of 10. Hypertensve to 170s. EKG showed sinus rhythm with old left bundle branch block and new discordant ST elevation in anterior leads (near 5mm in V3). HS TropI 149 up to 300. Family history: No premature CAD. Mother had heart issues. Social history: . 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 Denies tobacco. Allergies Allergy/AdvReac Type Severity Reaction Status Date / Time bee venom protein (honey bee) Allergy Severe SWELLING Verified 11/21/23 15:25 OF THROAT Home Medications Medication Instructions Recorded Confirmed Type acetaminophen 500 mg tablet 500 mg PO Q6H PRN Pain 09/18/23 11/21/23 History (Tylenol Extra Strength) aspirin 81 mg tablet,delayed 81 mg PO DAILY 09/18/23 11/21/23 History release colestipol 1 gram tablet 1 g PO HS 09/18/23 11/21/23 History doxazosin 2 mg tablet 2 mg PO DAILY PRN BPH 09/18/23 11/21/23 History epinephrine 0.3 mg/0.3 mL 0.3 mg IM Q4H PRN Severe allergies 09/18/23 11/21/23 History injection, auto-injector (EpiPen) lisinopril 30 mg tablet 30 mg PO QPM 09/18/23 11/21/23 History metoprolol succinate 50 mg 50 mg PO QPM 09/18/23 11/21/23 History tablet,extended release 24 hr colestipol 1 gram tablet 1 g PO DAILY PRN Diarrhea 11/21/23 11/21/23 History Patient History Medical History High blood pressure Skin cancer Social History Smoking Status: Former smoker Preferred Language: Guinean Feels Safe at Home: Yes Review of Systems Review of Systems: Not completed in the setting of emergent situation Physical Exam Physical Exam: General: Comfortable HEENT: Sclerae anicteric Lungs: Clear to auscultation anteriorly Cardiac: Regular rate and rhythm Vascular: 2+ radial Abdomen: Soft, nontender Extremities: Well perfused, no peripheral edema Neuro: Nonfocal Psych: Alert orient x3, normal affect and mood Results & Data Vital Signs (Past 12 Hours) Vital Signs Temp Pulse Pulse Resp BP BP Pulse Ox 11/21/23 15:26 77 13 11/21/23 15:26 162/78 H 11/21/23 15:18 146/75 H 11/21/23 15:18 81 22 100 11/21/23 15:15 75 19 100 11/21/23 15:13 82 14 100 11/21/23 15:00 71 19 158/86 H 96 11/21/23 13:55 11/21/23 13:55 11/21/23 13:55 11/21/23 13:20 98.6 F 89 18 167/88 H 97 O2 Del Method 11/21/23 15:26 11/21/23 15:26 11/21/23 15:18 11/21/23 15:18 11/21/23 15:15 11/21/23 15:13 11/21/23 15:00 Room Air 11/21/23 13:55 Room Air 11/21/23 13:55 Room Air 11/21/23 13:55 Room Air 11/21/23 13:20 Room Air PG Care Time/CCT Total # of Minutes Spent Total Time Spent with Patient: Total time spent is greater than 50% in coordination of care (as documented) at patient's floor/unit and/or counseling patient: Coding Level of Care Code 68472 ER DEPT VISIT MOD LVL 4 Diagnoses Chest pain R07.9
[2023-11-21] MEDS: MIDAZOLAM HCL 1 MG/ML 2ML VIAL ONE (16:08)
[2023-11-21] MEDS: HEPARIN (PORCINE) 1000 UNIT/ML 10 ML (CATH LAB USE ONLY) ONE (16:08)
[2023-11-21] MEDS: niCARdipine HCL INJ 2.5 MG/ML 10 ML AMP ONE (16:08)
[2023-11-21] MEDS: fentaNYL citrate PF 100 MCG/2 ML VIAL ONE (16:09)
[2023-11-21] MEDS: OPTIRAY 350 ONE (16:09)
[2023-11-21] MEDS: TICAGRELOR 90 MG TAB ONE (16:10)
[2023-11-21] MEDS: NITROGLYCERIN/D5W 100MCG/ML 20ML SYR ONE (16:10)
[2023-11-21] MEDS: LIDOCAINE 1% LOCAL 20 ML VIAL ONE (16:10)
--- NOTE | 2023-11-21 16:27 | Post Anesthesia Assessment ---
Date of Service November 21, 2023 Post Sedation Assessment Vital Signs Temp Pulse Pulse Resp BP BP Pulse Ox 11/21/23 15:26 77 13 11/21/23 15:26 162/78 H 11/21/23 15:18 146/75 H 11/21/23 15:18 81 22 100 11/21/23 15:15 75 19 100 11/21/23 15:13 82 14 100 11/21/23 15:00 71 19 158/86 H 96 11/21/23 13:55 11/21/23 13:55 11/21/23 13:55 11/21/23 13:20 98.6 F 89 18 167/88 H 97 O2 Del Method 11/21/23 15:26 11/21/23 15:26 11/21/23 15:18 11/21/23 15:18 11/21/23 15:15 11/21/23 15:13 11/21/23 15:00 Room Air 11/21/23 13:55 Room Air 11/21/23 13:55 Room Air 11/21/23 13:55 Room Air 11/21/23 13:20 Room Air Recovery Score Activity: Moves 4 extremities Respiration: Deep Breath/Cough Circulation: +/-20% PreAnes Value Consciousness: Fully Awake Oxygen Saturation: O2 needed for >90% Discharge Sedation Level of Care: Fast Track Phase II Post Sedation Plan On clinical assessment, the patient appears to have tolerated the sedation without complications. Patient is recovering as anticipated. Patient will continue to be monitored by nursing and may be discharged when se dation discharge criteria are met per below protocol. Upon Completions of procedure up to 15 minutes continue every 5 minute vital signs and the P.A.R. score; then discharge to a Phase I or Fast Track to Phase II per the following guidelines: * Discharge Patient to appropriate Phase II area if PAR is 8 or greater or return to pre- procedure baseline. The post - procedure orders will be as directed. * If PAR score is less than 8 or not return to pre-procedure baseline then patient will follow Phase I monitoring till PAR is reached for Phase II. The Phase I may be done in procedure room or may call to secure a Phase I area. * If naloxone or flumazenil are used for reversal, hold in Phase I for continued monitoring from when last reversal dose was given for a minimum of 60 minutes or longer pending the nurse and/or physician discretion of patient condition before discharge to Phase II. Please call the Sedation Physician to re-evaluate and complete post-note for discharge to Phase II area. Do NOT discharge from procedure sedation or Phase 1 until post- sedation evaluation note is complete by procedure /sedation MD Sedation Discharge Instructions to be given to the patient at discharge to home.
[2023-11-21] MEDS ORDERED: NITROGLYCERIN SL 0.4 MG/TAB TAB SL PRN (16:30)
[2023-11-21] MEDS ORDERED: ONDANSETRON INJ 2 MG/ML 2 ML VIAL IV PRN (16:30)
[2023-11-21] MEDS ORDERED: ACETAMINOPHEN 325 MG TAB PO PRN (16:30)
--- NOTE | 2023-11-21 16:47 | Cardiac Catheterization ---
[facility] Data: Patient Care Associate Cardiac Status Clinical evaluation leading to the procedure CAD Presenation: Non STEMI Anginal Classification: CCS IV Diagnostic Physicians Name: Hilario Berry MD Closure Device Recommendations: PCI without planned CABG Cardiac Cath Procedure Full Procedure Date November 21, 2023 Pre-Procedure Diagnosis Pre-Procedure Diagnosis: Non STEMI AUC Score AUC Score: 8 Post-Procedure Diagnosis Post-Procedure Diagnosis: Severe CAD, Successful PCI and Normal Intracardiac Pressures Procedure(s) Performed Procedure(s) Performed: Coronary Angiography, Left Heart Cath and Drug Eluting Stent Diagnostic Assistant Hilario Berry MD Dramatic Director(s) Showers Estimated Blood Loss Estimated Blood Loss: 15 Medication(s) Medication(s): Fentanyl, Heparin, Lidocaine 1%, Nicardipine, Nitroglycerin and Versed Medication(s): Ticagrelor Summary of Findings Indication: NSTEMI Access: 6 Fr right radial artery Catheters: [place], EBU 3.5 guide Findings: LM -normal caliber, no significant disease LAD -medium caliber vessel, 30% proximal disease, 40-50% mid segment disease, 95% focal stenosis in small apical LAD. Small to medium caliber D1 80% ostial/proximal disease. Small to medium caliber D3 80% ostial stenosis. Circumflex -medium caliber, 30-40% diffuse proximal disease. Mid segment with focal, acute appearing 8090% mid segment stenosis. Medium terminal OM without significant disease. Distal AV groove circumflex without disease. RCA -dominant small caliber 50% ostial with pressure waveform dampening. Small mid vessel with 30% disease. LVEDP -4 -- PCI -- Antithrombotic therapy: Heparin, ticagrelor Procedure: Left main cannulated with EBU 3.5 guide Pre-procedure flow MARISSA 3 BMW wire passed across lesion into distal vessel Mid circumflex lesion predilated with 2.5 compliant balloon Dilated lesion stented with 2.75 x 18 mm Weldon drug-eluting stent Stent post-dilated with 3.0 noncompliant balloon IC vasodilators administered for spasm Post procedure MARISSA 3 flow, stent well expanded with minimal residual stenosis and no apparent cardiac complications. Arterial Closure: TR band Summary: 1. Multi-vessel coronary artery disease -80-90% acute appearing mid circumflex 50% mid LAD, 95% small apical LAD. Small to medium D1 and D3 with 80% ostial stenosis. Small dominant RCA with 50% ostial stenosis 2. Normal intracardiac filling pressure 3. Successful PCI of mid circumflex with single drug-eluting stent (2.75 x 18 mm Weldon; postdilated with 3.0 NC). Recommendations: To PCU for continued monitoring Loaded with ticagrelor 180 mg in Patient Care Associate Continue dual-antiplatelet therapy for at least 1 year Trend troponin, check echo Start statin, and continue ASCVD risk factor modification Consult cardiac Rehab Plan to medically manage residual CAD Hemodynamics Rest Ao:: 131/72/96 Final Ao: 131/72/106 LV: 130/4 Recommendations Recommendations: PCI without planned CABG Specimens Specimens: None Radiation Exposure (mGy) 884 Contrast (mls) 60 Anesthesia Moderate 9585-8833 Procedural Complication(s) None Disposition PCU I attest to the content of the Intraoperative Record and any orders documented therein. Any exceptions are noted below. [facility] Card Cath Procedure Codes Cardiac Catheterization Procedure 1: Cardiovascular Cath Procedures: 36356 Coronaries and LHC (+/-LV) Moderate Sedation Procedure 1: Sedation/Anesthesia: 16370 Mod Sedation by the same physician;Init15 Min Child Age 5 & Up Stenting Procedure 1: Cardiovascular Stent Procedures: 90946 Perc transcatheter placement of intracoronary stent(s), with ang PG Care Time/CCT Total # of Minutes Spent Total Time Spent with Patient: Total time spent is greater than 50% in coordination of care (as documented) at patient's floor/unit and/or counseling patient:
[2023-11-21] MEDS: COLESTIPOL HCL 1 GM TAB PO SCH (20:12)
[2023-11-21] MEDS: METOPROLOL TARTRATE 25 MG TAB PO SCH (20:12)
--- NOTE | 2023-11-22 00:26 | Electrocardiogram Report ---
Test Reason : Blood Pressure : / mmHG Vent. Rate : 076 BPM Atrial Rate : 076 BPM P-R Int : 130 ms QRS Dur : 150 ms QT Int : 414 ms P-R-T Axes : 080 056 -76 degrees QTc Int : 465 ms Normal sinus rhythm Left bundle branch block Abnormal ECG When compared with ECG of 06-AUG-2022 16:57, No significant change Confirmed by Benjamín Richter ([id number]) on 11/22/2023 12:25:53 AM Referred By: Confirmed By:Benjamín Richter
[2023-11-22 07:59] LABS: Basophils # (auto) 0.03 K/uL (0.00-0.20); Basophils % (auto) 0.4 %; Eosinophils # (auto) 0.17 K/uL (0.00-0.50); Eosinophils % (auto) 2.3 %; Hematocrit (blood only) 43.2 % (42.0-52.0); Hemoglobin 14.9 g/dl (14.0-18.0); Immature Granulocytes # (auto) 0.02 K/uL (0.01-0.20); Immature Granulocytes % (auto) 0.3 %; Lymphocytes # (auto) 1.18 K/uL (1.20-3.40); Lymphocytes % (auto) 16.1 %; Mean Corpuscular Hemoglobin 31.7 pg (25.0-34.0); Mean Corpuscular Hgb Conc 34.5 g/dL (32.0-36.0); Mean Corpuscular Volume 91.9 fL (80.0-100.0); Monocytes % (auto) 12.3 %; Neutrophils # (auto) 5.02 K/uL (1.40-6.50); Neutrophils % (auto) 68.6 %; Platelet Count 304 K/uL (130-400); RDW Coefficient of Variation 12.7 % (11.5-14.5); White Blood Count 7.32 K/ul (4.8-10.8)
--- NOTE | 2023-11-22 08:11 | Hospitalist Progress Note ---
Date of Service November 22, 2023 Assessment & Plan Admission and Anticipated Discharge Date Admission Date: November 21, 2023 Results & Data Results & Data Vital Signs (Past 12 Hours) Vital Signs Temp Pulse Pulse Resp BP Pulse Ox O2 Del Method 11/22/23 07:13 62 11/22/23 02:35 36.4 C L 56 L 16 133/72 99 Room Air 11/21/23 23:08 55 L 11/21/23 22:37 36.5 C 55 L 16 133/72 99 Room Air 11/21/23 20:20 36.5 C 62 16 147/78 H 99 Room Air
[2023-11-22 08:16] LABS: BUN Creatinine Ratio 16.2 (10-20); Est GFR (African American) 83.5 ml/min; Est GFR (Non-African American) 72.1 ml/min; Magnesium 2.2 mg/dl (1.7-2.4); Potassium 4.7 mmol/L (3.5-5.1)
[2023-11-22 08:39] LABS: Estimated Average Glucose 134 mg/dl; Hemoglobin A1C 6.3 % (4.5-5.6)
[2023-11-22] MEDS: ATORVASTATIN 40 MG TAB PO SCH (09:40)
[2023-11-22] MEDS: ASPIRIN 81 MG ECTAB PO SCH (09:41)
[2023-11-22] MEDS: lisinopril 20 MG TAB PO SCH (09:41)
[2023-11-22] MEDS: TICAGRELOR 90 MG TAB PO SCH (10:20)
--- NOTE | 2023-11-22 12:07 | Electrocardiogram Report ---
Test Reason : Blood Pressure : / mmHG Vent. Rate : 057 BPM Atrial Rate : 057 BPM P-R Int : 140 ms QRS Dur : 150 ms QT Int : 500 ms P-R-T Axes : 052 -06 -65 degrees QTc Int : 486 ms Sinus bradycardia Left bundle branch block Abnormal ECG When compared with ECG of 21-NOV-2023 13:33, Questionable change in QRS axis T wave inversion now evident in Anterior leads T wave inversion no longer evident in Lateral leads Confirmed by Gt Evans ([id number]) on 11/22/2023 12:07:39 PM Referred By: REFERRED SELF Confirmed By:Gt Evans
--- NOTE | 2023-11-22 12:48 | Cardiology Progress Note ---
Date of Service November 22, 2023 Assessment & Plan (1) NSTEMI (non-ST elevated myocardial infarction): Plan: --post MONTSERRAT to mid LCx --residual diagonal, apical LAD disease 2. Hypertension with LVH 3. Dyslipidemia 4. Chronic LBBB 5. Mild mitral regurgitation Chest pain free, troponin peaked Hemodynamically and electrically stable No access site complication Post procedure labs stable. Echo reviewed -- LV function preserved. No new wall motion abnormalities. Mild MR. Concentric LVH. From a cardiac standpoint OK with discharge today. -- Home on DAPT with ASA and Ticagrelor -- Continue home toprol XL, lisinopril -- Consider CCB or nitrate as an outpatient if exertional angina -- home on new statin -- we discussed cardiac rehab -- Follow-up with Dr. Howard in 2 weeks. Admission and Anticipated Discharge Date Admission Date: November 21, 2023 Subjective Feeling well this morning. Up walking around room. Denies any chest pain. No other new symptoms. Tele reviewed - no events. Review of Systems Review of Systems: All systems reviewed & are unremarkable except as noted in HPI & below Physical Exam Physical Exam: General: Comfortable HEENT: Sclerae anicteric Lungs: Clear to auscultation bilaterally Cardiac: Regular rate and rhythm, 2/6 at apex Vascular: 2+ RT radial, no hematoma. Abdomen: Soft, nontender Extremities: Well perfused, no peripheral edema Neuro: Nonfocal Psych: Alert orient x3, normal affect and mood Results & Data Vital Signs (Past 12 Hours) Vital Signs Temp Pulse Pulse Resp BP Pulse Ox O2 Del Method 11/22/23 11:51 97.9 F 61 18 115/70 99 Room Air 11/22/23 08:26 97.7 F 74 18 114/69 99 Room Air 11/22/23 07:13 62 11/22/23 02:35 97.5 F L 56 L 16 133/72 99 Room Air PG Care Time/CCT Total # of Minutes Spent Total Time Spent with Patient: Total time spent is greater than 50% in coordination of care (as documented) at patient's floor/unit and/or counseling patient: Coding Level of Care Code 14772 SUB INP/OBS CARE 3/50MIN Diagnoses NSTEMI (non-ST elevated myocardial infarction) I21.4
--- NOTE | 2023-11-22 13:29 | Discharge Summary ---
Date of Service November 22, 2023 Admission HPI Per Admitting Provider Connor is a 67-year-old male with PMH of gastric ulcers, chronic cholecystitis, HTN, chronic venous insufficiency, and BPH. He presented for burning, substernal chest pain that first began while doing yard work on Thursday 11/16. Heart alert in the ED; taken to the cardiac cathodic protection technician with Dr. Berry. Patient reports that the substernal chest pain waxes and wanes, and initially thought that it was acid reflux. He has been taking antacids at home, but they have not been working. Patient also thought that he potentially strained his muscles when doing yard work on Friday history of chest pain with exertion. Patient reports that he has normally been very healthy, and is able to walk extensive distances without any pain he does report that he was restless in the evening of 11/19, and that the pain did keep him up. No radiation to the back or down the arms. No history of NE, CVA, T2DM, bleeding, or allergies to sedation. The pain is not worse with eating, he does endorse that it is slightly worse with movement. Patient is hypertensive at 158/86 at time of admission; vitals otherwise stable. ED course: Aspirin 324 mg ROS: following stent Patient denies fever in the last week, chills, night sweats, dizziness/lightheadedness, headache, changes in vision, chest pain at present, left shoulder pain, chest palpitations, cough, SOB, abdominal pain, N/V/D, change in urinary/bowel habits, or numbness or tingling in the arms or legs. Admission Exam Per Admitting Provider General: no acute distress; pleasant affect; non-toxic appearing; cooperative; 98% on RA HEENT: normocephalic, atraumatic; PERRLA; moist mucus membrane; vision and hearing grossly intact Neck: supple; no lymphadenopathy; trachea midline Skin: warm, dry without signs of tenting; no cyanosis; no rashes, bruising, lesions, or erythema noted CV: chest wall NTP; chest pain is not reproducible on palpation; RRR; S1/S2 normal; no murmurs/rubs/gallops; pulses intact and symmetric at radial, DP, and PT Lungs: no acute respiratory distress; symmetrical chest wall expansion; clear breath sounds across all lung [place] w/o adventitious sounds; no wheezing ABD: Soft, NTP; BS present; no rebound/guarding; no distention MSK: no tics or fasciculations; no edema noted in the LEs b/l, nonerythematous Neuro: A&Ox3; normal mood and affect; fluent speech; no focal deficits; sensation grossly intact in the LEs b/l Principal Diagnosis NSTEMI Discharge Exam Constitutional WD/WN, vitals as above Eyes PERRL, conjunctivae normal, anicteric sclerae ENMT external ear and nose normal, oropharynx normal Respiratory normal respiratory effort, lungs clear to auscultation Cardiovascular Rate/Rhythm: regular rate and regular rhythm Extremities: no edema Skin no rashes, warm and dry Psychiatric A+Ox3, euthymic affect Discharge Data Allergies Allergy/AdvReac Type Severity Reaction Status Date / Time bee venom protein (honey bee) Allergy Severe SWELLING Verified 11/21/23 15:25 OF THROAT Consultations 11/22/23 12:58 Consult Cardiac Rehabilitation Routine Procedures Performed Operation Date: 11/21/23 15:15 Actual Procedures s Cineradiography w/Routine Exam - Hilario Berry MD p Cath, Left with Cors and Vent - Hilario Berry MD p Drug Eluting Stent SGl Vessel - Hilario Berry MD Ordered Studies 11/21/23 15:12 CL Cath Imgs for PACS use only Stat Hospital Course (1) NSTEMI (non-ST elevated myocardial infarction): 67-year-old male with PMH of gastric ulcers, chronic cholecystitis, HTN, chronic venous insufficiency, and BPH. He presented for burning, substernal chest pain that first began while doing yard work on Thursday 11/16 NSTEMI -trop max 2806 -EKG LBBB, by Sgarbossa's criteria, new discordant elevation in V3 >5mm -Heart alert; cathodic protection technician with Dr. Hilario Berry 11/20 drug eluding stent placed, multivessel CAD noted started on atorvastatin 80mg started on Brilinta 90mg BID continue asa 81mg daily continue metoprolol succinate 50mg daily continue lisinopril 30mg daily continue colestipol 1g HS may use nitroglycerin 0.4g SL tab for anginal pain -Echo: LV function preserved -patient to f/u with Dr. Howard in Outpatient -cardiology to arrange cardiac rehab f/u -f/u with PCP Prediabetes -A1c 6.3% -consider starting diet modification or metformin HTN -continue lisinopril, metoprolol (2) High blood pressure: (3) Prediabetes: Total Time Total Time Spent Total Time Spent (In Minutes): <30 Discharge Plan Discharge Items Patient Disposition: Home - Self-Care Reason For Visit: CHEST PAIN Discharge Diagnosis: NSTEMI Activity: Per Instructions section Non-emergency contact: Primary Care Provider and Calender Roll Operator Call non-emergency contact if: your symptoms worsen and your pain is concerning for you Follow-up/Referrals: Adolfo Howard DO [Physician] - Daina Medina MD [Primary Care Provider] - Diet: Heart Healthy Addtl Attending Provider Instructions: You were admitted to the hospital for a heart attack. You were seen by cardiology, and a stent was placed in your heart arteries. Your heart catheterization did show multiple locations of coronary artery disease with stenosis. You were started on several medications to prevent progression of your disease. Please follow up with Cardiac Rehab to gradually return to exercise. Please follow up with your clinical courier after discharge. Ways that you can help prevent progression of your coronary artery disease include the following: continue avoidance of smoking and alcohol. Continue with regular exercise. Ensure that your blood pressure remains under 140/90. Limit the amount of foods with high fats/sugars/salts or other processed foods. Ensure that your blood sugars are controlled. Of note your A1c in the hospital was 6.3%, which is in the prediabetic range. Please discuss this with your PCP. A discharge summary will be sent to your primary care physician to ensure continuity of care. Please bring this discharge summary with you to your next office appointment so that your provider can review it at that time. Follow-up appointments: Make a follow-up appointment with your PCP within the next week. It is very important that you follow up with them shortly after discharge from the hospital. We have requested a follow-up appointment with your clinical courier. Please call their office if you do not hear from them. Keep all your follow-up appointments as already scheduled. If you cannot make an appointment, notify your provider. Medications: Your medication list has been reviewed and reconciled upon discharge to ensure accuracy and continuity of care. An updated list of all your medications is included with your hospital discharge paperwork. Please review this list closel y, and make note of any changes. * We sent a new medication called Brilinta to your pharmacy. Take Brilinta 90mg one tablet twice a day for a year * We sent a new medication called Atorvastatin to your pharmacy. Take Atorvastatin 80mg one tablet daily * We sent a new medication called Nitroglycerin to your pharmacy. Take Nitroglycerin 0.4mg sublingually one tablet as needed for cardiac related ch est pain. If your chest pain fails to resolve or worsens in 5 min, take a second tablet and call 911 Take your medications as instructed; do not skip a dose of your medicines. Make sure all of your doctors know every medicine you are taking (including fqln-uof-lmpoogd medicines, vitamins, and supplements). Call your primary care provider before taking any new medicines (including defp-sda-qaretsm medicines, vitamins, and supplements), because some of these may interact with your current medications, or may make your symptoms worse. Tell your primary care provider if you cannot afford your medications. CONTACT YOUR PRIMARY CARE PROVIDER if you experience any of the following: Nausea, fatigue Lightheadedness Difficulty following your treatment plan, or difficulty taking medications CALL 911 OR GO TO THE EMERGENCY DEPARTMENT if you experience any of the following: Sudden, severe abdominal pain or nausea/vomiting Severe chest pain, or chest pain that radiates (moves) to your jaw or arm Sudden, severe shortness of breath or difficulty breathing Thank you for allowing us to participate in your care. Pending Studies at Discharge: No Stand-Alone Forms: My [facility], Smoking Cessation Medications and DC Order Prescriptions: New Brilinta 90 mg Tablet 90 mg PO BID 30 Days Qty: 60 0RF atorvastatin 40 mg Tablet 80 mg PO QAM 30 Days Qty: 60 0RF nitroglycerin [Nitrostat] 0.4 mg Tablet, Sublingual 0.4 mg sublingual Q5M PRN (Reason: chest pain) Qty: 7 0RF Continued acetaminophen [Tylenol Extra Strength] 500 mg tablet 500 mg PO Q6H PRN (Reason: Pain) aspirin 81 mg tablet,delayed release (DR/EC) 81 mg PO DAILY colestipol 1 gram tablet 1 g PO HS doxazosin 2 mg tablet 2 mg PO DAILY PRN (Reason: BPH) epinephrine [EpiPen] 0.3 mg/0.3 mL auto-injector 0.3 mg IM Q4H PRN (Reason: Severe allergies) lisinopril 30 mg tablet 30 mg PO QPM metoprolol succinate 50 mg tablet extended release 24 hr 50 mg PO QPM colestipol 1 gram tablet 1 g PO DAILY PRN (Reason: Diarrhea) Discharge Orders: Discharge Order (Routine); Ordered 11/22/23 Ordered By: Chantel Espana/Other Patient Handouts: A1C, Mediterranean Diet, Heart Attack Angina Sx Admission Data Admit Date/Time: 11/21/23 16:10 Attending Provider: Suresh Jones Admit Provider: Morris Gonzalez Primary Care Provider: Daina Medina Other Interventions: Discharge Summary Assessment (RN) Last Done: 11/22/23 13:31 Supervising Physician Co-Signing Physician Notes I personally examined the patient and verified all villa points of history and exam, discussed case, and agree with decision making with Dr Nugent feeling better wants to go home. extensive d/w pt and answered all questions to the best of my ability vitals noted nad heent nc at mmm breathing unlabored no accessory muscles good effort skin no rashes no pallor or icterus NSTEMI/CAD, associated dyslipidemia and impaired glucose tolerance. safe/stable for home, med management, therapeutic lifestyle. f/u PCP and cardiology otherwise as above Resident Activity Tracking Resident Involvement: Resident Care Provided Care Provided: Adult Hospital Medicine
--- NOTE | 2023-11-22 14:10 | XCELERA ---
[id number]
--- NOTE | 2023-11-22 16:08 | Billing Data ---
Date of Service November 22, 2023 Coding Level of Care Code 34536 IN/OBS DISCH 30 MIN/LESS
== END 2023-11-22 14:21 | disposition home or self-care (01) | DRG 322 ==
LOC: ED 13:13 → 2S 15:33 → SUATTDRO 16:10 → 2S 16:10